=== PATIENT | male | born 1940 | race Caucasian/White ===

== ENCOUNTER 2024-05-17 13:00 | Outpatient (RCR) | payer MEDICARE, BC, SELFPAY ==
[2024-05-17 11:48] VITALS: BP 115/67; PULSE 63; RESP 16; TEMP 36.4
[2024-05-17 12:06] VITALS: BP 100/52; PULSE 63; RESP 16; TEMP 36.4; O2SAT 97
[2024-05-17 12:51] VITALS: BP 105/66; PULSE 58; RESP 16; TEMP 36.4; O2SAT 96
[2024-05-17 13:51] VITALS: BP 119/70; PULSE 60; RESP 16; TEMP 36.4; O2SAT 95
[2024-05-17 15:00] VITALS: BP 105/69; PULSE 67; RESP 16; TEMP 36.6; O2SAT 96
== END 2024-11-12 23:59 | disposition home or self-care (01) ==
LOC: CCIC 13:00
PROVIDERS: PCP Family Medicine; Visit Provider Clinical Nurse Specialist
DX: D50.9 Iron deficiency anemia, unspecified (principal); D46.9 Myelodysplastic syndrome, unspecified
CPT/HCPCS: 36415; 36430; 86850; 86900; 86901; 86922; P9016